=== PATIENT | male | born 1965 | race Hispanic/Latino ===

== ENCOUNTER 2018-09-30 08:20 | Inpatient (IN) | payer BC ==
[2018-09-30] MEDS ORDERED: NACL 0.9% 500 ML 500 ML IV SCH (09:00)
[2018-09-30] MEDS ORDERED: ECOTRIN PO ONE (09:00)
[2018-09-30 09:57] LABS: Basophils # (Auto) 0.1 K/mm3 (0.0-0.1); Basophils % (Auto) 0.8 % (0.0-1.8); Eosinophils % (Auto) 0.3 % (0.0-4.3); Hemoglobin 17.9 gm/dl (11.8-15.2); Lymphocytes # (Auto) 1.5 K/mm3 (1.2-5.4); Lymphocytes % (Auto) 16.2 % (13.4-35.0); Mean Corpuscular HGB Conc 34 % (32-34); Mean Corpuscular Volume 87 fl (84-94); Monocytes # (Auto) 0.7 K/mm3 (0.0-0.8); Monocytes % (Auto) 7.8 % (0.0-7.3); Platelet Count 180 K/mm3 (140-440); Red Blood Count 6.06 M/mm3 (3.65-5.03); Red Cell Distribution Width 15.5 % (13.2-15.2)
[2018-09-30 10:09] LABS: INR 0.95 (0.87-1.13); Partial Thromboplastin Time 29.2 Sec. (24.2-36.6)
[2018-09-30 10:20] LABS: BUN/Creatinine Ratio 11; Blood Urea Nitrogen 11 mg/dL (9-20); Hemolysis Index 17
[2018-09-30] MEDS ORDERED: SUBLIMAZE ONE (10:44)
[2018-09-30] MEDS ORDERED: VERSED ONE (10:44)
[2018-09-30] MEDS ORDERED: HEPARIN/NS 5000 UNIT/500ML(CATH LAB) 1,000 ML IR ONE (10:45)
[2018-09-30] MEDS: NITROGLYCERIN SYRINGE 3 ML ONE ×2 (11:23→11:28)
[2018-09-30] MEDS: CALAN ONE ×2 (11:24→11:28)
[2018-09-30] MEDS: HEPARIN 10,000 UNITS/10 ML ONE ×2 (11:25→11:28)
[2018-09-30] MEDS: XYLOCAINE 2% INFILTRATI ONE ×2 (11:26→11:27)
[2018-09-30] MEDS ORDERED: LASIX ONE (11:40)
[2018-09-30] MEDS ORDERED: LASIX IV SCH (13:00)
--- NOTE | 2018-09-30 13:02 | Cardiac Catherization Report ---
CARDIAC CATHETERIZATION REFERRING PHYSICIAN: Tj Bobby MD INDICATION FOR PROCEDURE: The patient is a pleasant 53-year-old gentleman with a history of severe cardiomyopathy, atrial fibrillation, both of which are new diagnoses with orthopnea, significant symptoms, started on anticoagulation and beta blockade, was noncompliant, here for left heart catheterization. Risks, benefits, and alternatives explained at length prior to obtaining informed consent. PROCEDURE IN DETAIL: The patient was brought to the catheterization lab in a postabsorptive state, prepped and draped in sterile fashion. Hieu's test in right hand was normal. A 2 mL of 2% lidocaine used to anesthetize the right wrist. A standard 6-[place] hydrophilic sheath was used to cannulate the right radial artery via modified Seldinger technique. All exchanges performed to exchange a J-tipped guidewire. JL3.5 catheter used to engage the left main. No dampening or ventricularization. Cineangiography performed in all projections. JR4 catheter used to cross the aortic valve under fluoroscopic guidance. Left ventriculography was performed in 30 [place] and [place] projections via hand injections, catheter flushed. Manual pullback performed with continuous pressure monitoring. Catheter used to engage the right coronary. No dampening or ventricularization. Cineangiography performed in multiple projections. Next, catheter removed from the body of wire, sheath removed. Manual pressure used to achieve hemostasis. I directly supervised the administration of moderate sedation from 11:23 to 11:45 a.m. DATA: Aortic pressure is 150/100, LV pressure is 150, LVP of 40-45 mmHg. The patient remained in sinus tachycardia throughout the procedure. Heart rate of 110. Left ventriculography reveals severe global left ventricular hypokinesis, estimated ejection fraction of 25%-30%, left main without significant disease, bifurcates left anterior descending and left circumflex. Left circumflex is a large vessel, no significant disease. LAD is a large vessel, courses anterior intergroove, wraps around the apex, no significant disease in the LAD or diagonal system. Right coronary is a large vessel, courses AV groove, distally bifurcates in the posterior and posterolateral branch, no significant disease. No evidence of aortic stenosis. CONCLUSIONS: 1. No angiographic evidence of significant epicardial coronary disease in this right dominant system. 2. Severe global left ventricular hypokinesis, estimated ejection fraction of 25%. 3. No evidence of aortic stenosis. 4. Markedly elevated LVEDP. These findings are consistent with a severe on decompensated nonischemic cardiomyopathy with a markedly elevated LVEDP and physiologic sinus tachycardia. At this point, we will discuss the options. We will go ahead and admit the patient. We will further diurese, optimization will start low dose beta blockade, systemic anticoagulation, standard radial care. Results of the procedure were explained at length with the patient and family. All questions and concerns were addressed. JOB# [id number] RAVI/ANNE
--- NOTE | 2018-09-30 13:20 | Consultation ---
History of Present Illness Consult date: 09/30/18 Requesting physician: TOM QUINTANA Consult reason: congestive heart failure History of present illness: The pt is a 53 YO male with a past medical history of NICMP, paroxysmal atrial fibrillation, HTN, DM, obesity, HLP, hypothyroidism, sleep apnea, gout. He is followed in our office by Dr. Brendan Bobby. He presented for scheduled elective LHC today and was found to be in acutely decompensated HF and thus admission per [facility] pitalist team was requested. LHC showed normal coronaries, EF 25%, markedly elevated LVEDP. Echo done 09/17/2018 showed EF 30-35%, severe global hypokinesis. Medications and Allergies Allergies Allergy/AdvReac Type Severity Reaction Status Date / Time Penicillins AdvReac Unknown Verified 09/30/18 08:33 Home Medications Medication Instructions Recorded Confirmed Last Taken Type Allopurinol 300 mg PO DAILY 09/30/18 09/30/18 09/29/18 History 300mg Apixaban [Eliquis] 5 mg PO BID 09/30/18 09/30/18 09/25/18 History 5mg Aspirin [Aspirin EC] 325 mg PO DAILY 09/30/18 09/30/18 09/25/18 History 325mg Carvedilol [Coreg] 6.25 mg PO BID 09/30/18 09/30/18 09/25/18 History 6.25mg Furosemide [Lasix TAB] 20 mg PO DAILY 09/30/18 09/30/18 09/29/18 History 20mg Levothyroxine [Synthroid] 125 mcg PO DAILY 09/30/18 09/30/18 09/29/18 History 125mcg Losartan/Hydrochlorothiazide 1 tab PO DAILY 09/30/18 09/30/18 09/29/18 History [Losartan-Hctz 50-12.5 mg Tab] 1 Pantoprazole Sodium 40 mg PO DAILY 09/30/18 09/30/18 09/29/18 History 40mg Active Meds: Active Medications Furosemide (Lasix) 40 mg IV Q24H GERMAN Sodium Chloride (Nacl 0.9% 500 Ml) 500 mls @ 50 mls/hr IV DIRECT GERMAN Stop: 09/30/18 18:59 Last Admin: 09/30/18 10:09 Dose: 50 mls/hr Documented by: Physical Examination Vital Signs Temp Pulse Resp BP Pulse Ox 98.3 F 108 H 16 139/105 98 09/30/18 09:24 09/30/18 09:24 09/30/18 09:24 09/30/18 09:24 09/30/18 09:24 Results 09/30/18 09:49 09/30/18 08:48 Coagulation 09/30/18 Range/Units 08:48 PT 13.2 (12.2-14.9) Sec. INR 0.95 (0.87-1.13) APTT 29.2 (24.2-36.6) Sec. CBC 09/30/18 Range/Units 09:49 WBC 9.0 (4.5-11.0) K/mm3 RBC 6.06 H (3.65-5.03) M/mm3 Hgb 17.9 H (11.8-15.2) gm/dl Hct 53.0 H (35.5-45.6) % Plt Count 180 (140-440) K/mm3 Lymph # 1.5 (1.2-5.4) K/mm3 [place] # 0.7 (0.0-0.8) K/mm3 Eos # 0.0 (0.0-0.4) K/mm3 Baso # 0.1 (0.0-0.1) K/mm3 Comprehensive Metabolic Panel 09/30/18 Range/Units 08:48 Sodium 140 (137-145) mmol/L Potassium 3.9 (3.6-5.0) mmol/L Chloride 101.6 (98-107) mmol/L Carbon Dioxide 30 (22-30) mmol/L BUN 11 (9-20) mg/dL Creatinine 1.0 (0.8-1.5) mg/dL Glucose 92 (75-100) mg/dL Calcium 9.0 (8.4-10.2) mg/dL - Imaging and Cardiology Echo: report reviewed (09/17/2018 showed EF 30-35%, severe global hypokinesis. ) Cardiac cath: report reviewed (09/30/2018: normal coronaries, EF 25%) EKG: report reviewed, image reviewed EKG interpretations - Telemetry EKG Rhythm: Atrial Fibrillation Assessment and Plan Initiate diuresis and GDMT as tolerated. The patient has been seen in conjunction with Dr. Brendan Bobby who agrees with the assessment and plan of care. - Patient Problems (1) Acute HFrEF (heart failure with reduced ejection fraction) Current Visit: Yes Status: Acute (2) NICM (nonischemic cardiomyopathy) Current Visit: Yes Status: Chronic (3) Paroxysmal atrial fibrillation Current Visit: Yes Status: Chronic (4) HTN (hypertension) Current Visit: Yes Status: Chronic (5) Hyperlipidemia Current Visit: Yes Status: Chronic (6) Diabetes Current Visit: Yes Status: Chronic (7) Sleep apnea Current Visit: Yes Status: Chronic (8) History of hypothyroidism Current Visit: Yes Status: Chronic (9) Obesity Current Visit: Yes Status: Chronic
[2018-09-30] MEDS ORDERED: NORCO 5/325 PO ONE (14:15)
[2018-09-30] MEDS ORDERED: NORCO 5/325 ONE (14:15)
--- NOTE | 2018-09-30 15:24 | XRay Report ---
AP CHEST: HISTORY: Short of breath AP view of the chest demonstrates a normal mediastinal and cardiac contour with clear lungs and normal bony and soft tissue structures. IMPRESSION: Unremarkable AP chest.
--- NOTE | 2018-09-30 15:31 | History and Physical Report ---
History of Present Illness Date of examination: 09/30/18 Date of admission: 09/30/18 11:43 Chief complaint: Increasing shortness of breath for 2 days History of present illness: 53 YO male with a past medical history of NICMP, paroxysmal atrial fibrillation, HTN, DM, obesity, HLP, hypothyroidism, sleep apnea, gout presented for scheduled elective LHC today and was found to be in acutely decompensated HF. LHC showed normal coronaries, EF 25%, markedly elevated LVEDP. Echo done 09/17/2018 showed EF 30-35%, severe global hypokinesis. Patient has orthopnea and dyspnea on minimal exertion. Has class IV NYHA symptoms. No chest pain. Past History Past Medical History: GERD (gout), heart failure, hypertension, hypothyroidism, other (gout) Past Surgical History: Other (back surgery with laser 20 years ago and also lithotripsy for multiple kidney stones) Social history: lives with family, smoking ([patient was doing smokeless tobacco(DIP) for the last 30 years. Stopped 3 years ago), full code Family history: hypertension Medications and Allergies Allergies Allergy/AdvReac Type Severity Reaction Status Date / Time Penicillins AdvReac Unknown Verified 09/30/18 08:33 Home Medications Medication Instructions Recorded Confirmed Last Taken Type Allopurinol 300 mg PO DAILY 09/30/18 09/30/18 09/29/18 History 300mg Apixaban [Eliquis] 5 mg PO BID 09/30/18 09/30/18 09/25/18 History 5mg Aspirin [Aspirin EC] 325 mg PO DAILY 09/30/18 09/30/18 09/25/18 History 325mg Carvedilol [Coreg] 6.25 mg PO BID 09/30/18 09/30/18 09/25/18 History 6.25mg Furosemide [Lasix TAB] 20 mg PO DAILY 09/30/18 09/30/18 09/29/18 History 20mg Levothyroxine [Synthroid] 125 mcg PO DAILY 09/30/18 09/30/18 09/29/18 History 125mcg Losartan/Hydrochlorothiazide 1 tab PO DAILY 09/30/18 09/30/18 09/29/18 History [Losartan-Hctz 50-12.5 mg Tab] 1 Pantoprazole Sodium 40 mg PO DAILY 09/30/18 09/30/18 09/29/18 History 40mg Active Meds: Active Medications Apixaban (Eliquis) 5 mg PO BID [facility]; Protocol Carvedilol (Coreg) 3.125 mg PO BID [facility] Furosemide (Lasix) 40 mg PO QDAY [facility] Sodium Chloride (Nacl 0.9% 500 Ml) 500 mls @ 50 mls/hr IV DIRECT [place]ER[place] Stop: 09/30/18 18:59 Last Admin: 09/30/18 10:09 Dose: 50 mls/hr Documented by: Levothyroxine Sodium (Synthroid) 125 mcg PO DAILY [place] Pantoprazole Sodium (Protonix) 40 mg PO DAILY [facility] Review of Systems All systems: negative Constitutional: no weight loss, no weight gain, no fever, no chills, no sweats, no night sweats Ears, nose, mouth and throat: no mouth pain, no dysphagia, no hoarseness, no sore throat Cardiovascular: orthopnea, shortness of breath, dyspnea on exertion, no chest pain Respiratory: shortness of breath, dyspnea on exertion, no cough, no cough with sputum, no excessive sputum, no hemoptysis Gastrointestinal: no abdominal pain, no nausea, no vomiting, no diarrhea, no constipation, no change in bowel habits, no hematemesis, no coffee ground emesis Genitourinary Male: no dysuria, no hematuria, no flank pain, no discharge, no urinary frequency, no urinary hesitancy, no nocturia, no incontinence, no erectile dysfunction, no genital pain Rectal: no pain, no incontinence, no bleeding Musculoskeletal: no neck stiffness, no neck pain, no shooting arm pain, no arm numbness/tingling, no low back pain, no shooting leg pain, no leg numbness/tingling, no redness of joints Integumentary: no rash, no pruritis, no redness, no sores, no wounds, no jaundice, no boils, no blisters Neurological: no seizures, no syncope Psychiatric: no anxiety, no memory loss, no change in sleep habits, no sleep disturbances, no insomnia, no hypersomnia Endocrine: no cold intolerance, no heat intolerance, no polyphagia, no excessive thirst, no polydipsia, no polyuria, no nocturia, no excessive sweating, no flushing, no weight change Hematologic/Lymphatic: no easy bruising, no easy bleeding Allergic/Immunologic: no urticaria, no allergic rhinitis, no wheezing Exam - Constitutional Vitals: Temp Pulse Resp BP Pulse Ox 98.5 F 114 H 11 L 146/86 96 09/30/18 12:00 09/30/18 14:00 09/30/18 14:25 09/30/18 14:00 09/30/18 14:00 General appearance: Present: mild distress, well-nourished - EENT Eyes: Present: PERRL ENT: hearing intact, clear oral mucosa - Neck Neck: Present: supple, normal ROM - Respiratory Respiratory effort: normal Respiratory: bilateral: CTA - Cardiovascular Rhythm: regular Heart Sounds: Present: S1 & S2. Absent: rub, click - Extremities Extremities: no ischemia, pulses intact, pulses symmetrical, No edema Peripheral Pulses: within normal limits - Abdominal General gastrointestinal: Present: soft, non-tender, non-distended, normal bowel sounds Male genitourinary: Present: normal - Rectal Rectal Exam: deferred - Integumentary Integumentary: Present: clear, warm, dry - Musculoskeletal Musculoskeletal: gait normal, strength equal bilaterally - Psychiatric Psychiatric: appropriate mood/affect, intact judgment & insight - Neurologic Neurologic: CNII-XII intact, moves all extremities - Allied Health Allied health notes reviewed: nursing, case management Results - Labs CBC & Chem 7: 09/30/18 09:49 09/30/18 08:48 Labs: Laboratory Last Values WBC 9.0 K/mm3 (4.5-11.0) 09/30/18 09:49 RBC 6.06 M/mm3 (3.65-5.03) H 09/30/18 09:49 Hgb 17.9 gm/dl (11.8-15.2) H 09/30/18 09:49 Hct 53.0 % (35.5-45.6) H 09/30/18 09:49 MCV 87 fl (84-94) 09/30/18 09:49 MCH 30 pg (28-32) 09/30/18 09:49 MCHC 34 % (32-34) 09/30/18 09:49 RDW 15.5 % (13.2-15.2) H 09/30/18 09:49 Plt Count 180 K/mm3 (140-440) 09/30/18 09:49 Lymph % (Auto) 16.2 % (13.4-35.0) 09/30/18 09:49 [place] % (Auto) 7.8 % (0.0-7.3) H 09/30/18 09:49 Eos % (Auto) 0.3 % (0.0-4.3) 09/30/18 09:49 Baso % (Auto) 0.8 % (0.0-1.8) 09/30/18 09:49 Lymph # 1.5 K/mm3 (1.2-5.4) 09/30/18 09:49 [place] # 0.7 K/mm3 (0.0-0.8) 09/30/18 09:49 Eos # 0.0 K/mm3 (0.0-0.4) 09/30/18 09:49 Baso # 0.1 K/mm3 (0.0-0.1) 09/30/18 09:49 Seg Neutrophils % 74.9 % (40.0-70.0) H 09/30/18 09:49 Seg Neutrophils # 6.8 K/mm3 (1.8-7.7) 09/30/18 09:49 PT 13.2 Sec. (12.2-14.9) 09/30/18 08:48 INR 0.95 (0.87-1.13) 09/30/18 08:48 APTT 29.2 Sec. (24.2-36.6) 09/30/18 08:48 Sodium 140 mmol/L (137-145) 09/30/18 08:48 Potassium 3.9 mmol/L (3.6-5.0) 09/30/18 08:48 Chloride 101.6 mmol/L (98-107) 09/30/18 08:48 Carbon Dioxide 30 mmol/L (22-30) 09/30/18 08:48 Anion Gap 12 mmol/L 09/30/18 08:48 BUN 11 mg/dL (9-20) 09/30/18 08:48 Creatinine 1.0 mg/dL (0.8-1.5) 09/30/18 08:48 Estimated GFR > 60 ml/min 09/30/18 08:48 BUN/Creatinine Ratio 11 % 09/30/18 08:48 Glucose 92 mg/dL (75-100) 09/30/18 08:48 Calcium 9.0 mg/dL (8.4-10.2) 09/30/18 08:48 NT-Pro-B Natriuret Pep 204.9 pg/mL (0-900) 09/30/18 08:48 Short CBC 09/30/18 Range/Units 09:49 WBC 9.0 (4.5-11.0) K/mm3 Hgb 17.9 H (11.8-15.2) gm/dl Hct 53.0 H (35.5-45.6) % Plt Count 180 (140-440) K/mm3 BMP 09/30/18 08:48 Sodium 140 Potassium 3.9 Chloride 101.6 Carbon Dioxide 30 BUN 11 Creatinine 1.0 Glucose 92 Calcium 9.0 - Imaging and Cardiology EKG: report reviewed (ectopic atrial tachycardia, heart rate of 112 per minute) Chest x-ray: report reviewed (increased interstitial markings bilaterally) Assessment and Plan Advance Directives: Yes (full code) VTE prophylaxis?: Chemical Plan of care discussed with patient/family: Yes - Patient Problems (1) Acute exacerbation of CHF (congestive heart failure) Current Visit: Yes Status: Acute Qualifiers: Heart failure type: diastolic Qualified Code(s): I50.33 - Acute on chronic diastolic (congestive) heart failure Plan to address problem: Echocardiogram was done]\ejection fraction was IV Lasix 40 every 12 Potassium 20 mEq every 12 Cardiology consult requested (2) Hypothyroidism (acquired) Current Visit: Yes Status: Acute Plan to address problem: Continue Synthroid at 125 g by mouth daily Check TSH (3) HTN (hypertension) Current Visit: Yes Status: Chronic Plan to address problem: Continue antihypertensives in the form of carvedilol and losartan (4) NICM (nonischemic cardiomyopathy) Current Visit: Yes Status: Chronic (5) Hyperlipidemia Current Visit: Yes Status: Chronic Qualifiers: Hyperlipidemia type: mixed hyperlipidemia Qualified Code(s): E78.2 - Mixed hyperlipidemia Plan to address problem: Continue statins (6) Gout Current Visit: Yes Status: Inactive Plan to address problem: Continue allopurinol for prevention of gout (7) Anticoagulation management encounter Current Visit: Yes Status: Chronic Plan to address problem: Continue ELIQUIS (8) GERD (gastroesophageal reflux disease) Current Visit: Yes Status: Acute Qualifiers: Esophagitis presence: without esophagitis Qualified Code(s): K21.9 - Gastro-esophageal reflux disease without esophagitis Plan to address problem: Continue Protonix 40 mg once a day (9) DVT prophylaxis Current Visit: Yes Status: Acute Plan to address problem: Continue Lovenox 30 mg subcutaneous daily. Patient already on Eliquis GI prophylaxis-patient on pantoprazole for GERD
[2018-09-30] MEDS ORDERED: APRESOLINE IV ONE (17:24)
[2018-09-30] MEDS ORDERED: SODIUM CHLORIDE FLUSH SYRINGE 10 ML IV PRN (17:53)
[2018-09-30] MEDS ORDERED: TYLENOL PO PRN (17:53)
[2018-09-30] MEDS ORDERED: ZOFRAN IV PRN (17:53)
[2018-09-30] MEDS ORDERED: NON-FORMULARY (Losartan/Hydrochlorothiazide [Losartan-Hctz 50-12.5 Mg Tab] 1 TAB) PO SCH (18:00)
[2018-09-30] MEDS ORDERED: PNEUMOVAX 23 IM ONE (19:15)
[2018-09-30] MEDS ORDERED: HCTZ PO SCH (20:00)
[2018-09-30] MEDS: COZAAR PO SCH (21:04)
[2018-09-30] MEDS: ELIQUIS PO SCH (21:05)
[2018-09-30] MEDS ORDERED: PERCOCET 5/325 PO PRN (21:15)
[2018-09-30] MEDS: ZYLOPRIM PO SCH (21:36)
[2018-09-30] MEDS: SODIUM CHLORIDE FLUSH SYRINGE 10 ML IV SCH (21:45)
[2018-09-30] MEDS ORDERED: COREG PO SCH ×2 (22:00)
[2018-10-01] MEDS ORDERED: SYNTHROID PO SCH (06:00)
[2018-10-01] MEDS ORDERED: LASIX IV SCH (06:00)
[2018-10-01 06:37] LABS: BUN/Creatinine Ratio 12; Blood Urea Nitrogen 13 mg/dL (9-20); Calcium 9.2 mg/dL (8.4-10.2); Hemolysis Index 24
[2018-10-01] MEDS ORDERED: ECOTRIN PO SCH (10:00)
[2018-10-01] MEDS ORDERED: LASIX PO SCH (10:00)
--- NOTE | 2018-10-01 10:04 | Progress Note ---
Assessment and Plan Optimize HR - increase coreg dosage. Cont diuresis. The patient has been seen in conjunction with Dr. Brendan Bobby who agrees with the assessment and plan of care. - Patient Problems (1) Acute HFrEF (heart failure with reduced ejection fraction) Current Visit: Yes Status: Acute (2) NICM (nonischemic cardiomyopathy) Current Visit: Yes Status: Chronic (3) Paroxysmal atrial fibrillation Current Visit: Yes Status: Chronic (4) HTN (hypertension) Current Visit: Yes Status: Chronic (5) Hyperlipidemia Current Visit: Yes Status: Chronic Qualifiers: Hyperlipidemia type: mixed hyperlipidemia Qualified Code(s): E78.2 - Mixed hyperlipidemia (6) Diabetes Current Visit: Yes Status: Chronic (7) Sleep apnea Current Visit: Yes Status: Chronic (8) History of hypothyroidism Current Visit: Yes Status: Chronic (9) Obesity Current Visit: Yes Status: Chronic Subjective Date of service: 10/01/18 Principal diagnosis: HF Interval history: pt sitting up in chair, states he is feeling a little better today. in SR with bouts of parox AFib RVR overnight. Objective Last Vital Signs Temp 98.2 F 10/01/18 08:48 Pulse 126 H 10/01/18 08:47 Resp 18 10/01/18 08:47 BP 112/77 10/01/18 08:47 Pulse Ox 96 10/01/18 08:47 - Physical Examination General: No Apparent Distress HEENT: Positive: PERRL, Normocephaly, Mucus Membranes Moist Cardiac: Positive: S1/S2, Tachycardia Lungs: Positive: Decreased Breath Sounds Neuro: Positive: Grossly Intact Abdomen: Negative: Tender Skin: Negative: Rash Musculoskeletal: No Pain Extremities: Present: +1 Edema (BLE) - Labs and Meds Coagulation 09/30/18 Range/Units 08:48 PT 13.2 (12.2-14.9) Sec. INR 0.95 (0.87-1.13) APTT 29.2 (24.2-36.6) Sec. Comprehensive Metabolic Panel 09/30/18 10/01/18 Range/Units 08:48 04:48 Sodium 140 138 (137-145) mmol/L Potassium 3.9 3.4 L (3.6-5.0) mmol/L Chloride 101.6 96.5 L (98-107) mmol/L Carbon Dioxide 30 28 (22-30) mmol/L BUN 11 13 (9-20) mg/dL Creatinine 1.0 1.1 (0.8-1.5) mg/dL Glucose 92 131 H (75-100) mg/dL Calcium 9.0 9.2 (8.4-10.2) mg/dL - Imaging and Cardiology EKG: report reviewed (ectopic atrial tachycardia, heart rate of 112 per minute) Echo: report reviewed (09/17/2018 showed EF 30-35%, severe global hypokinesis. ) Cardiac cath: report reviewed (09/30/2018: normal coronaries, EF 25%) - Telemetry EKG Rhythm: Sinus Rhythm
[2018-10-01] MEDS: COREG PO SCH ×2 (10:44→22:44)
[2018-10-01] MEDS: ZYLOPRIM PO SCH (10:45)
[2018-10-01] MEDS: K-DUR PO SCH (10:45)
[2018-10-01] MEDS: PROTONIX PO SCH (10:46)
[2018-10-01] MEDS: ELIQUIS PO SCH ×2 (10:46→22:44)
[2018-10-01] MEDS: COZAAR PO SCH (10:47)
[2018-10-01] MEDS: SODIUM CHLORIDE FLUSH SYRINGE 10 ML IV SCH ×2 (10:50→22:49)
--- NOTE | 2018-10-01 14:27 | Progress Note ---
Assessment and Plan Assessment and plan: 53 y.o male with a past medical history of NICMP, paroxysmal atrial fibrillation, HTN, DM, obesity, HLP, hypothyroidism, sleep apnea, gout presented for scheduled elective LHC on 09/30 and was found to be in acutely decompensated HF. LHC showed normal coronaries, EF 25%, markedly elevated LVEDP. Echo done 09/17/2018 showed EF 30-35%, severe global hypokinesis. Patient has orthopnea and dyspnea on minimal exertion. Has class IV NYHA symptoms. Acute Exacerbation CHF Lasix 40mg BID; con't K+ replacement, monitor electrolytes Cardiology consulted and recommendation appreciated Hypothyroidism TSH 5.280 checked on 09/30 Increase Synthroid to 127mcg HTN Continue to monitor BP Coreg increased to 6.25mg per cardiology Cardiology following and managing History Interval history: Pt has 3+ pitting edema. He states that his symptoms have improved some, but still has " alot of fluid". There were no acute overnight events. Hospitalist Physical - Constitutional Vitals: Temp Pulse Resp BP Pulse Ox 98.2 F 120 H 20 124/81 98 10/01/18 12:59 10/01/18 12:57 10/01/18 12:57 10/01/18 12:57 10/01/18 12:57 General appearance: Present: no acute distress, mild distress, obese - EENT Eyes: Present: PERRL, EOM intact ENT: hearing intact - Neck Neck: Present: supple, normal ROM - Respiratory Respiratory effort: normal Respiratory: bilateral: diminished (bases) - Cardiovascular Rhythm: irregularly irregular Heart Sounds: Present: S1 & S2 - Extremities Extremities: pulses intact Extremity abnormal: edema - Peripheral Assessment Lower Extremity Edema Type: Pitting Edema Degree: 3+ Capillary Refill: < 3 seconds Skin Temperature: Warm Peripheral Pulses: within normal limits - Abdominal General gastrointestinal: soft, non-tender, normal bowel sounds - Integumentary Integumentary: Present: warm, dry - Psychiatric Psychiatric: appropriate mood/affect, cooperative - Neurologic Neurologic: CNII-XII intact Results - Labs CBC & Chem 7: 09/30/18 09:49 10/01/18 04:48 Labs: Laboratory Last Values WBC 9.0 K/mm3 (4.5-11.0) 09/30/18 09:49 RBC 6.06 M/mm3 (3.65-5.03) H 09/30/18 09:49 Hgb 17.9 gm/dl (11.8-15.2) H 09/30/18 09:49 Hct 53.0 % (35.5-45.6) H 09/30/18 09:49 MCV 87 fl (84-94) 09/30/18 09:49 MCH 30 pg (28-32) 09/30/18 09:49 MCHC 34 % (32-34) 09/30/18 09:49 RDW 15.5 % (13.2-15.2) H 09/30/18 09:49 Plt Count 180 K/mm3 (140-440) 09/30/18 09:49 Lymph % (Auto) 16.2 % (13.4-35.0) 09/30/18 09:49 [place] % (Auto) 7.8 % (0.0-7.3) H 09/30/18 09:49 Eos % (Auto) 0.3 % (0.0-4.3) 09/30/18 09:49 Baso % (Auto) 0.8 % (0.0-1.8) 09/30/18 09:49 Lymph # 1.5 K/mm3 (1.2-5.4) 09/30/18 09:49 Nance # 0.7 K/mm3 (0.0-0.8) 09/30/18 09:49 Eos # 0.0 K/mm3 (0.0-0.4) 09/30/18 09:49 Baso # 0.1 K/mm3 (0.0-0.1) 09/30/18 09:49 Seg Neutrophils % 74.9 % (40.0-70.0) H 09/30/18 09:49 Seg Neutrophils # 6.8 K/mm3 (1.8-7.7) 09/30/18 09:49 PT 13.2 Sec. (12.2-14.9) 09/30/18 08:48 INR 0.95 (0.87-1.13) 09/30/18 08:48 APTT 29.2 Sec. (24.2-36.6) 09/30/18 08:48 Sodium 138 mmol/L (137-145) 10/01/18 04:48 Potassium 3.4 mmol/L (3.6-5.0) L 10/01/18 04:48 Chloride 96.5 mmol/L (98-107) L 10/01/18 04:48 Carbon Dioxide 28 mmol/L (22-30) 10/01/18 04:48 Anion Gap 17 mmol/L 10/01/18 04:48 BUN 13 mg/dL (9-20) 10/01/18 04:48 Creatinine 1.1 mg/dL (0.8-1.5) 10/01/18 04:48 Estimated GFR > 60 ml/min 10/01/18 04:48 BUN/Creatinine Ratio 12 % 10/01/18 04:48 Glucose 131 mg/dL (75-100) H 10/01/18 04:48 Calcium 9.2 mg/dL (8.4-10.2) 10/01/18 04:48 NT-Pro-B Natriuret Pep 204.9 pg/mL (0-900) 09/30/18 08:48 TSH 5.280 mlU/mL (0.270-4.200) H 09/30/18 19:42 Active Medications - Current Medications Current Medications: Generic Name Dose Route Start Last Admin Trade Name Freq PRN Reason Stop Dose Admin Acetaminophen 650 mg 09/30/18 17:53 Tylenol PO Q4H PRN Pain MILD(1-3)/Fever >100.5/MARTINEZ Allopurinol 300 mg 09/30/18 20:00 10/01/18 10:45 Zyloprim PO 300 mg DAILY GERMAN Administration Apixaban 5 mg 09/30/18 22:00 10/01/18 10:46 Eliquis PO 5 mg BID GERMAN Administration Protocol Carvedilol 6.25 mg 10/01/18 11:00 10/01/18 10:44 Coreg PO 6.25 mg BID GERMAN Administration Furosemide 40 mg 10/01/18 15:00 Lasix IV BID [facility] Levothyroxine Sodium 112 mcg 10/02/18 06:00 Synthroid PO DAILY@0600 [facility] Levothyroxine Sodium 25 mcg 10/02/18 06:00 Synthroid PO DAILY@0600 [facility] Losartan Potassium 50 mg 09/30/18 20:00 10/01/18 10:47 Cozaar PO 50 mg QDAY GERMAN Administration Ondansetron HCl 4 mg 09/30/18 17:53 Zofran IV Q8H PRN Nausea And Vomiting Oxycodone/Acetaminophen 1 tab 09/30/18 21:15 09/30/18 21:34 Percocet 5/325 PO 1 tab Q4H PRN Administration Pain, Moderate (4-6) Pantoprazole Sodium 40 mg 10/01/18 10:00 10/01/18 10:46 Protonix PO 40 mg DAILY GERMAN Administration Potassium Chloride 20 meq 10/01/18 10:00 10/01/18 10:45 K-Dur PO 20 meq QDAY GERMAN Administration Sodium Chloride 10 ml 09/30/18 22:00 10/01/18 10:50 Sodium Chloride Flush Syringe 10 Ml IV 10 ml BID GERMAN Administration Sodium Chloride 10 ml 09/30/18 17:53 Sodium Chloride Flush Syringe 10 Ml IV PRN PRN LINE FLUSH Nutrition/Malnutrition Assess - Dietary Evaluation Nutrition/Malnutrition Findings: Nutrition Notes Start: 10/01/18 10:41 Freq: Status: Active Protocol: Document 10/01/18 10:41 TW (Rec: 10/01/18 10:57 TW [id number]) Co-Sign 10/01/18 10:41 LP Nutrition Notes Need for Assessment generated from: ham stripper,MST Initial or Follow up Brief Note Current Diagnosis Diabetes,Hypertension,Heart Failure,Hyperlipidemia Other Pertinent Diagnosis Hx: NICM Current Diet Cardiac Labs/Tests K 3.4 Pertinent Medications Lasix Height 5 ft 11 in Weight 150.5 kg [place] Body Weight (kg) 78.18 BMI 46.3 Intake Prior to Admission Good Weight Status Morbidly Obese Subjective/Other Information RN screen for MST risk. Pt reports having a good appetite and eating 100% of meals. Noted breakfast tray with 100% eaten at bedside. Pt denies wt loss, allergies, chewing/ swallowing difficulty and V/D. Pt reports having episodes of mild nausea but it has not effected his appetite. Pt reports being hungry after meals and requesting extra pro on tray. No noted physical signs of wasting. Percent of energy/protein needs met: 100%/100% Burn Absent Trauma Absent GI Symptoms Nausea Food Allergy No Current % PO Good (75-100%) Minimum of two criteria No #1 Nutrition Diagnosis No nutrition diagnosis at this time Is patient on ventilator? No Is Patient Ambulatory and/or Out of Bed Yes REE-([facility]-ambulatory/OOB) [ 3070.769 NUTR.MSJOOB] Kcal/Kg value to use for calculation 17 Approximate Energy Requirements Using 2559 kcal/Kg Calculation Used for Recommendations Kcal/kg Additional Notes AdjBW: 114kg pro: 91-114g/day (0.8-1g/kg AdjBW) fluid: 1 mL/kcal or per MD Nutrition Intervention Change Diet Order: Continue Cardiac w/ double pro Revisit per MD consult or patient Sign Off request:
[2018-10-01] MEDS: LASIX IV SCH ×2 (15:41→22:44)
[2018-10-02] MEDS ORDERED: SYNTHROID 112 MCG, SYNTHROID 25 MCG PO SCH (06:00)
[2018-10-02] MEDS: SYNTHROID PO SCH ×2 (06:35)
[2018-10-02] MEDS: COZAAR PO SCH ×2 (09:38→12:34)
[2018-10-02] MEDS: K-DUR PO SCH (09:39)
[2018-10-02] MEDS: ELIQUIS PO SCH ×2 (09:39→21:46)
[2018-10-02] MEDS: PROTONIX PO SCH (09:39)
[2018-10-02] MEDS: LASIX IV SCH ×2 (09:39→21:45)
[2018-10-02] MEDS: COREG PO SCH ×2 (09:39→21:46)
[2018-10-02] MEDS: ZYLOPRIM PO SCH (09:39)
[2018-10-02] MEDS: SODIUM CHLORIDE FLUSH SYRINGE 10 ML IV SCH ×2 (09:41→21:46)
[2018-10-02] MEDS ORDERED: LOPRESSOR PO SCH (11:00)
--- NOTE | 2018-10-02 11:07 | Progress Note ---
Assessment and Plan Pt in apparent AFib/AFlutter with RVR HR 120s on telemetry. Optimize HR - initiate amiodarone. Cont coreg. Cont diuresis. The patient has been seen in conjunction with Dr. Brendan Bobby who agrees with the assessment and plan of care. - Patient Problems (1) Acute HFrEF (heart failure with reduced ejection fraction) Current Visit: Yes Status: Acute (2) NICM (nonischemic cardiomyopathy) Current Visit: Yes Status: Chronic (3) Paroxysmal atrial fibrillation Current Visit: Yes Status: Chronic (4) HTN (hypertension) Current Visit: Yes Status: Chronic (5) Hyperlipidemia Current Visit: Yes Status: Chronic Qualifiers: Hyperlipidemia type: mixed hyperlipidemia Qualified Code(s): E78.2 - Mixed hyperlipidemia (6) Diabetes Current Visit: Yes Status: Chronic (7) Sleep apnea Current Visit: Yes Status: Chronic (8) History of hypothyroidism Current Visit: Yes Status: Chronic (9) Obesity Current Visit: Yes Status: Chronic Subjective Date of service: 10/02/18 Principal diagnosis: HF Interval history: pt sitting up in chair, c/o orthopnea overnight. in apparent AFib/AFlutter with RVR HR 120s on telemetry. Objective Last Vital Signs Temp 98.3 F 10/02/18 08:13 Pulse 118 H 10/02/18 09:39 Resp 12 10/02/18 08:13 BP 104/71 10/02/18 09:39 Pulse Ox 94 10/02/18 08:13 - Physical Examination General: No Apparent Distress HEENT: Positive: PERRL, Normocephaly, Mucus Membranes Moist Neuro: Positive: Grossly Intact Abdomen: Negative: Tender Skin: Negative: Rash Musculoskeletal: No Pain Extremities: Present: +1 Edema (BLE) - Imaging and Cardiology EKG: report reviewed (ectopic atrial tachycardia, heart rate of 112 per minute) Echo: report reviewed (09/17/2018 showed EF 30-35%, severe global hypokinesis. ) Cardiac cath: report reviewed (09/30/2018: normal coronaries, EF 25%)
--- NOTE | 2018-10-02 11:54 | Progress Note ---
Assessment and Plan Assessment and plan: 53 y.o male with a past medical history of NICMP, paroxysmal atrial fibrillation, HTN, DM, obesity, HLP, hypothyroidism, sleep apnea, gout presented for scheduled elective LHC on 09/30 and was found to be in acutely decompensated HF. LHC showed normal coronaries, EF 25%, markedly elevated LVEDP. Echo done 09/17/2018 showed EF 30-35%, severe global hypokinesis. Patient has orthopnea and dyspnea on minimal exertion. Has class IV NYHA symptoms. At the time of my examination pt is sitting up in chair on RA. Pt states that he feels better and is looking forward to discharge. Acute Exacerbation CHF Lasix 40mg BID; con't K+ replacement, monitor electrolytes Cardiology following and managing Hypothyroidism TSH 5.280 checked on 09/30 T4 7.5 checked on 10/02 Free T4 1.3 checked on 10/02 Continue Synthroid to 127mcg HTN Continue to monitor BP On Coreg 6.25mg Start metoprolol 37.5mg q 8hrs Cardiology following and managing Paroxysmal AFib Not rate controlled AC on Eliquis On PO amiodarone Started on Amiodarone gtt by cardiology Disposition Plan: plans to d/c to home when medically cleared History Interval history: HR elevated 100-124 bpm. Cardiology contacted/ aware. He was placed on amiodarone gtt today. Hospitalist Physical - Constitutional Vitals: Temp Pulse Resp BP Pulse Ox 98.3 F 118 H 12 104/71 94 10/02/18 08:13 10/02/18 09:39 10/02/18 08:13 10/02/18 09:39 10/02/18 08:13 General appearance: Present: no acute distress, mild distress, obese - EENT Eyes: Present: PERRL, EOM intact ENT: hearing intact, dentition normal - Neck Neck: Present: supple, normal ROM - Respiratory Respiratory effort: normal Respiratory: bilateral: diminished (bases) - Cardiovascular Rhythm: irregularly irregular Heart Sounds: Present: S1 & S2 - Extremities Extremities: pulses intact Extremity abnormal: edema - Peripheral Assessment Bilateral Lower Extremity Edema Degree: 2+ Capillary Refill: < 3 seconds Skin Temperature: Warm Peripheral Pulses: within normal limits - Abdominal General gastrointestinal: soft, non-tender, normal bowel sounds - Integumentary Integumentary: Present: clear, warm, dry - Psychiatric Psychiatric: appropriate mood/affect, cooperative - Neurologic Neurologic: moves all extremities, gait normal Results - Labs CBC & Chem 7: 09/30/18 09:49 10/02/18 11:23 Labs: Laboratory Last Values WBC 9.0 K/mm3 (4.5-11.0) 09/30/18 09:49 RBC 6.06 M/mm3 (3.65-5.03) H 09/30/18 09:49 Hgb 17.9 gm/dl (11.8-15.2) H 09/30/18 09:49 Hct 53.0 % (35.5-45.6) H 09/30/18 09:49 MCV 87 fl (84-94) 09/30/18 09:49 MCH 30 pg (28-32) 09/30/18 09:49 MCHC 34 % (32-34) 09/30/18 09:49 RDW 15.5 % (13.2-15.2) H 09/30/18 09:49 Plt Count 180 K/mm3 (140-440) 09/30/18 09:49 Lymph % (Auto) 16.2 % (13.4-35.0) 09/30/18 09:49 [place] % (Auto) 7.8 % (0.0-7.3) H 09/30/18 09:49 Eos % (Auto) 0.3 % (0.0-4.3) 09/30/18 09:49 Baso % (Auto) 0.8 % (0.0-1.8) 09/30/18 09:49 Lymph # 1.5 K/mm3 (1.2-5.4) 09/30/18 09:49 [place] # 0.7 K/mm3 (0.0-0.8) 09/30/18 09:49 Eos # 0.0 K/mm3 (0.0-0.4) 09/30/18 09:49 Baso # 0.1 K/mm3 (0.0-0.1) 09/30/18 09:49 Seg Neutrophils % 74.9 % (40.0-70.0) H 09/30/18 09:49 Seg Neutrophils # 6.8 K/mm3 (1.8-7.7) 09/30/18 09:49 PT 13.2 Sec. (12.2-14.9) 09/30/18 08:48 INR 0.95 (0.87-1.13) 09/30/18 08:48 APTT 29.2 Sec. (24.2-36.6) 09/30/18 08:48 Sodium 138 mmol/L (137-145) 10/01/18 04:48 Potassium 3.4 mmol/L (3.6-5.0) L 10/01/18 04:48 Chloride 96.5 mmol/L (98-107) L 10/01/18 04:48 Carbon Dioxide 28 mmol/L (22-30) 10/01/18 04:48 Anion Gap 17 mmol/L 10/01/18 04:48 BUN 13 mg/dL (9-20) 10/01/18 04:48 Creatinine 1.1 mg/dL (0.8-1.5) 10/01/18 04:48 Estimated GFR > 60 ml/min 10/01/18 04:48 BUN/Creatinine Ratio 12 % 10/01/18 04:48 Glucose 131 mg/dL (75-100) H 10/01/18 04:48 Calcium 9.2 mg/dL (8.4-10.2) 10/01/18 04:48 NT-Pro-B Natriuret Pep 204.9 pg/mL (0-900) 09/30/18 08:48 TSH 5.280 mlU/mL (0.270-4.200) H 09/30/18 19:42 Active Medications - Current Medications Current Medications: Generic Name Dose Route Start Last Admin Trade Name Freq PRN Reason Stop Dose Admin Acetaminophen 650 mg 09/30/18 17:53 Tylenol PO Q4H PRN Pain MILD(1-3)/Fever >100.5/MARTINEZ Allopurinol 300 mg 09/30/18 20:00 10/02/18 09:39 Zyloprim PO 300 mg DAILY GERMAN Administration Amiodarone HCl 200 mg 10/02/18 22:00 Cordarone PO BID GERMAN Apixaban 5 mg 09/30/18 22:00 10/02/18 09:39 Eliquis PO 5 mg BID GERMAN Administration Protocol Carvedilol 6.25 mg 10/02/18 22:00 Coreg PO BID GERMAN Furosemide 40 mg 10/01/18 15:00 10/02/18 09:39 Lasix IV 40 mg BID GERMAN Administration Amiodarone HCl 150 mg/ 100 mls @ 600 mls/hr 10/02/18 12:00 Dextrose IV 10/02/18 12:09 ONCE ONE Amiodarone HCl 900 mg/ 500 mls @ 33.333 mls/hr 10/02/18 12:00 Dextrose IV DIRECT GERMAN Protocol 1 MG/MIN Levothyroxine Sodium 112 mcg 10/02/18 06:00 10/02/18 06:35 Synthroid PO 112 mcg DAILY@0600 GERMAN Administration Levothyroxine Sodium 25 mcg 10/02/18 06:00 10/02/18 06:35 Synthroid PO 25 mcg DAILY@0600 GERMAN Administration Losartan Potassium 25 mg 10/02/18 12:00 Cozaar PO QDAY GERMAN Ondansetron HCl 4 mg 09/30/18 17:53 Zofran IV Q8H PRN Nausea And Vomiting Oxycodone/Acetaminophen 1 tab 09/30/18 21:15 09/30/18 21:34 Percocet 5/325 PO 1 tab Q4H PRN Administration Pain, Moderate (4-6) Pantoprazole Sodium 40 mg 10/01/18 10:00 10/02/18 09:39 Protonix PO 40 mg DAILY GERMAN Administration Potassium Chloride 20 meq 10/01/18 10:00 10/02/18 09:39 K-Dur PO 20 meq QDAY GERMAN Administration Sodium Chloride 10 ml 09/30/18 22:00 10/02/18 09:41 Sodium Chloride Flush Syringe 10 Ml IV 10 ml BID GERMAN Administration Sodium Chloride 10 ml 09/30/18 17:53 Sodium Chloride Flush Syringe 10 Ml IV PRN PRN LINE FLUSH Nutrition/Malnutrition Assess - Dietary Evaluation Nutrition/Malnutrition Findings: Nutrition Notes Start: 10/01/18 10:41 Freq: Status: Active Protocol: Document 10/01/18 10:41 TW (Rec: 10/01/18 10:57 TW [id number]) Co-Sign 10/01/18 10:41 LP Nutrition Notes Need for Assessment generated from: review coordinator,MST Initial or Follow up Brief Note Current Diagnosis Diabetes,Hypertension,Heart Failure,Hyperlipidemia Other Pertinent Diagnosis Hx: NICM Current Diet Cardiac Labs/Tests K 3.4 Pertinent Medications Lasix Height 5 ft 11 in Weight 150.5 kg [place] Body Weight (kg) 78.18 BMI 46.3 Intake Prior to Admission Good Weight Status Morbidly Obese Subjective/Other Information RN screen for MST risk. Pt reports having a good appetite and eating 100% of meals. Noted breakfast tray with 100% eaten at bedside. Pt denies wt loss, allergies, chewing/ swallowing difficulty and V/D. Pt reports having episodes of mild nausea but it has not effected his appetite. Pt reports being hungry after meals and requesting extra pro on tray. No noted physical signs of wasting. Percent of energy/protein needs met: 100%/100% Burn Absent Trauma Absent GI Symptoms Nausea Food Allergy No Current % PO Good (75-100%) Minimum of two criteria No #1 Nutrition Diagnosis No nutrition diagnosis at this time Is patient on ventilator? No Is Patient Ambulatory and/or Out of Bed Yes REE-([facility]-ambulatory/OOB) [ 3070.769 NUTR.MSJOOB] Kcal/Kg value to use for calculation 17 Approximate Energy Requirements Using 2559 kcal/Kg Calculation Used for Recommendations Kcal/kg Additional Notes AdjBW: 114kg pro: 91-114g/day (0.8-1g/kg AdjBW) fluid: 1 mL/kcal or per MD Nutrition Intervention Change Diet Order: Continue Cardiac w/ double pro Revisit per MD consult or patient Sign Off request:
[2018-10-02] MEDS ORDERED: CORDARONE 150 MG in D5W 97 ML IV ONE (12:00)
[2018-10-02] MEDS ORDERED: CORDARONE 900 MG in D5W 482 ML IV SCH (12:00)
[2018-10-02] MEDS: CORDARONE PO SCH (21:46)
[2018-10-03] MEDS: SYNTHROID PO SCH ×2 (05:55)
--- NOTE | 2018-10-03 08:21 | Progress Note ---
<FREDRICK ARDON - Last Filed: 10/03/18 08:20> Assessment and Plan Assessment and plan: 53 y.o male with a past medical history of NICMP, paroxysmal atrial fibrillation, HTN, DM, obesity, HLP, hypothyroidism, sleep apnea, gout presented for scheduled elective LHC on 09/30 and was found to be in acutely decompensated HF. LHC showed normal coronaries, EF 25%, markedly elevated LVEDP. Echo done 09/17/2018 showed EF 30-35%, severe global hypokinesis. Patient has orthopnea and dyspnea on minimal exertion. Has class IV NYHA symptoms. At the time of my examination pt is sitting up in chair on RA. Pt states that he feels better and is looking forward to discharge. Acute Exacerbation CHF Lasix 40mg BID; con't K+ replacement, monitor electrolytes Cardiology following and managing Hypothyroidism TSH 5.280 checked on 09/30 T4 7.5 checked on 10/02 Free T4 1.3 checked on 10/02 Continue Synthroid to 127mcg HTN Continue to monitor BP On Coreg 6.25mg Start metoprolol 37.5mg q 8hrs Cardiology following and managing Paroxysmal AFib Not rate controlled AC on Eliquis On PO amiodarone Started on Amiodarone gtt by cardiology History Interval history: Remains on Amiodarone gtt. HR this am 92bpm. There were no acute overnight events. Hospitalist Physical - Constitutional Vitals: Temp Pulse Resp BP Pulse Ox 97.9 F 84 16 105/74 90 10/03/18 04:07 10/03/18 04:40 10/03/18 04:07 10/03/18 04:07 10/03/18 04:07 General appearance: Present: no acute distress, mild distress, obese Results - Labs CBC & Chem 7: 09/30/18 09:49 10/02/18 11:23 Labs: Laboratory Last Values WBC 9.0 K/mm3 (4.5-11.0) 09/30/18 09:49 RBC 6.06 M/mm3 (3.65-5.03) H 09/30/18 09:49 Hgb 17.9 gm/dl (11.8-15.2) H 09/30/18 09:49 Hct 53.0 % (35.5-45.6) H 09/30/18 09:49 MCV 87 fl (84-94) 09/30/18 09:49 MCH 30 pg (28-32) 09/30/18 09:49 MCHC 34 % (32-34) 09/30/18 09:49 RDW 15.5 % (13.2-15.2) H 09/30/18 09:49 Plt Count 180 K/mm3 (140-440) 09/30/18 09:49 Lymph % (Auto) 16.2 % (13.4-35.0) 09/30/18 09:49 [place] % (Auto) 7.8 % (0.0-7.3) H 09/30/18 09:49 Eos % (Auto) 0.3 % (0.0-4.3) 09/30/18 09:49 Baso % (Auto) 0.8 % (0.0-1.8) 09/30/18 09:49 Lymph # 1.5 K/mm3 (1.2-5.4) 09/30/18 09:49 [place] # 0.7 K/mm3 (0.0-0.8) 09/30/18 09:49 Eos # 0.0 K/mm3 (0.0-0.4) 09/30/18 09:49 Baso # 0.1 K/mm3 (0.0-0.1) 09/30/18 09:49 Seg Neutrophils % 74.9 % (40.0-70.0) H 09/30/18 09:49 Seg Neutrophils # 6.8 K/mm3 (1.8-7.7) 09/30/18 09:49 PT 13.2 Sec. (12.2-14.9) 09/30/18 08:48 INR 0.95 (0.87-1.13) 09/30/18 08:48 APTT 29.2 Sec. (24.2-36.6) 09/30/18 08:48 Sodium 139 mmol/L (137-145) 10/02/18 11:23 Potassium 3.6 mmol/L (3.6-5.0) 10/02/18 11:23 Chloride 98.1 mmol/L (98-107) 10/02/18 11:23 Carbon Dioxide 29 mmol/L (22-30) 10/02/18 11:23 Anion Gap 16 mmol/L 10/02/18 11:23 BUN 22 mg/dL (9-20) H 10/02/18 11:23 Creatinine 1.4 mg/dL (0.8-1.5) 10/02/18 11:23 Estimated GFR 53 ml/min 10/02/18 11:23 BUN/Creatinine Ratio 16 % 10/02/18 11:23 Glucose 111 mg/dL (75-100) H 10/02/18 11:23 Calcium 9.0 mg/dL (8.4-10.2) 10/02/18 11:23 NT-Pro-B Natriuret Pep 204.9 pg/mL (0-900) 09/30/18 08:48 TSH 5.280 mlU/mL (0.270-4.200) H 09/30/18 19:42 Free T4 1.30 ng/dL (0.76-1.46) 10/02/18 11:23 Thyroxine (T4) 7.5 ug/dL (4.0-12.0) 10/02/18 11:23 Active Medications - Current Medications Current Medications: Generic Name Dose Route Start Last Admin Trade Name Freq PRN Reason Stop Dose Admin Acetaminophen 650 mg 09/30/18 17:53 Tylenol PO Q4H PRN Pain MILD(1-3)/Fever >100.5/MARTINEZ Allopurinol 300 mg 09/30/18 20:00 10/02/18 09:39 Zyloprim PO 300 mg DAILY GERMAN Administration Amiodarone HCl 200 mg 10/02/18 22:00 10/02/18 21:46 Cordarone PO 200 mg BID GERMAN Administration Apixaban 5 mg 09/30/18 22:00 10/02/18 21:46 Eliquis PO 5 mg BID GERMAN Administration Protocol Carvedilol 6.25 mg 10/02/18 22:00 10/02/18 21:46 Coreg PO 6.25 mg BID GERMAN Administration Furosemide 40 mg 10/01/18 15:00 10/02/18 21:45 Lasix IV 40 mg BID GERMAN Administration Amiodarone HCl 900 mg/ 500 mls @ 33.333 mls/hr 10/02/18 12:00 Dextrose IV DIRECT GERMAN Protocol 1 MG/MIN Levothyroxine Sodium 112 mcg 10/02/18 06:00 10/03/18 05:55 Synthroid PO 112 mcg DAILY@0600 GERMAN Administration Levothyroxine Sodium 25 mcg 10/02/18 06:00 10/03/18 05:55 Synthroid PO 25 mcg DAILY@0600 GERMAN Administration Losartan Potassium 25 mg 10/02/18 12:00 10/02/18 12:34 Cozaar PO Not Given QDAY GERMAN Ondansetron HCl 4 mg 09/30/18 17:53 Zofran IV Q8H PRN Nausea And Vomiting Oxycodone/Acetaminophen 1 tab 09/30/18 21:15 09/30/18 21:34 Percocet 5/325 PO 1 tab Q4H PRN Administration Pain, Moderate (4-6) Pantoprazole Sodium 40 mg 10/01/18 10:00 10/02/18 09:39 Protonix PO 40 mg DAILY GERMAN Administration Potassium Chloride 20 meq 10/01/18 10:00 10/02/18 09:39 K-Dur PO 20 meq QDAY GERMAN Administration Sodium Chloride 10 ml 09/30/18 22:00 10/02/18 21:46 Sodium Chloride Flush Syringe 10 Ml IV 10 ml BID GERMAN Administration Sodium Chloride 10 ml 09/30/18 17:53 Sodium Chloride Flush Syringe 10 Ml IV PRN PRN LINE FLUSH Nutrition/Malnutrition Assess - Dietary Evaluation Nutrition/Malnutrition Findings: Nutrition Notes Start: 10/01/18 10:41 Freq: Status: Active Protocol: Document 10/01/18 10:41 TW (Rec: 10/01/18 10:57 TW [id number]) Co-Sign 10/01/18 10:41 LP Nutrition Notes Need for Assessment generated from: vehicle care specialist,MST Initial or Follow up Brief Note Current Diagnosis Diabetes,Hypertension,Heart Failure,Hyperlipidemia Other Pertinent Diagnosis Hx: NICM Current Diet Cardiac Labs/Tests K 3.4 Pertinent Medications Lasix Height 5 ft 11 in Weight 150.5 kg [place] Body Weight (kg) 78.18 BMI 46.3 Intake Prior to Admission Good Weight Status Morbidly Obese Subjective/Other Information RN screen for MST risk. Pt reports having a good appetite and eating 100% of meals. Noted breakfast tray with 100% eaten at bedside. Pt denies wt loss, allergies, chewing/ swallowing difficulty and V/D. Pt reports having episodes of mild nausea but it has not effected his appetite. Pt reports being hungry after meals and requesting extra pro on tray. No noted physical signs of wasting. Percent of energy/protein needs met: 100%/100% Burn Absent Trauma Absent GI Symptoms Nausea Food Allergy No Current % PO Good (75-100%) Minimum of two criteria No #1 Nutrition Diagnosis No nutrition diagnosis at this time Is patient on ventilator? No Is Patient Ambulatory and/or Out of Bed Yes REE-([facility]-St. Jeor-ambulatory/OOB) [ 3070.769 NUTR.MSJOOB] Kcal/Kg value to use for calculation 17 Approximate Energy Requirements Using 2559 kcal/Kg Calculation Used for Recommendations Kcal/kg Additional Notes AdjBW: 114kg pro: 91-114g/day (0.8-1g/kg AdjBW) fluid: 1 mL/kcal or per MD Nutrition Intervention Change Diet Order: Continue Cardiac w/ double pro Revisit per MD consult or patient Sign Off request: <KAISER TAPIA M - Last Filed: 10/19/18 18:59> Assessment and Plan Assessment and plan: I saw and evaluated the patient. I agree with the findings and the plan of care as documented in the Nurse Practitioner's~note, with the following corrections and additions. Plan Continue rate control medications for cardiology, continue diuresis, continue anticoagulation with eliquis Diagnosis acute systolic heart failure Paroxysmal atrial fibrillation with rvr Hypercoagulable state Hypertension hyperlipidemia diabetes obstructive sleep apnea History Interval history: no cp, no sob, no fever, no cough or vomiting Hospitalist Physical - Physical exam Narrative exam: General.: Appears well, no distress, nontoxic HEENT: Moist mucous membranes, extraocular muscles intact, no lymphadenopathy Neck: supple Cardiac: S1-S2 heard Lungs: clear to auscultation bilaterally Abdomen: soft , nontender, nondistended, bowel sounds positive Extremities: no edema clubbing or cyanosis Skin: no rash or lesions Neurologic: no gross focal deficits Psych: calm, and cooperative - Constitutional Vitals: Temp Pulse Resp BP Pulse Ox 97.9 F 84 16 125/76 90 10/03/18 04:07 10/03/18 04:40 10/03/18 04:07 10/03/18 10:19 10/03/18 04:07 Results - Labs CBC & Chem 7: 09/30/18 09:49 10/02/18 11:23 Labs: Laboratory Last Values WBC 9.0 K/mm3 (4.5-11.0) 09/30/18 09:49 RBC 6.06 M/mm3 (3.65-5.03) H 09/30/18 09:49 Hgb 17.9 gm/dl (11.8-15.2) H 09/30/18 09:49 Hct 53.0 % (35.5-45.6) H 09/30/18 09:49 MCV 87 fl (84-94) 09/30/18 09:49 MCH 30 pg (28-32) 09/30/18 09:49 MCHC 34 % (32-34) 09/30/18 09:49 RDW 15.5 % (13.2-15.2) H 09/30/18 09:49 Plt Count 180 K/mm3 (140-440) 09/30/18 09:49 Lymph % (Auto) 16.2 % (13.4-35.0) 09/30/18 09:49 [place] % (Auto) 7.8 % (0.0-7.3) H 09/30/18 09:49 Eos % (Auto) 0.3 % (0.0-4.3) 09/30/18 09:49 Baso % (Auto) 0.8 % (0.0-1.8) 09/30/18 09:49 Lymph # 1.5 K/mm3 (1.2-5.4) 09/30/18 09:49 [place] # 0.7 K/mm3 (0.0-0.8) 09/30/18 09:49 Eos # 0.0 K/mm3 (0.0-0.4) 09/30/18 09:49 Baso # 0.1 K/mm3 (0.0-0.1) 09/30/18 09:49 Seg Neutrophils % 74.9 % (40.0-70.0) H 09/30/18 09:49 Seg Neutrophils # 6.8 K/mm3 (1.8-7.7) 09/30/18 09:49 PT 13.2 Sec. (12.2-14.9) 09/30/18 08:48 INR 0.95 (0.87-1.13) 09/30/18 08:48 APTT 29.2 Sec. (24.2-36.6) 09/30/18 08:48 Sodium 139 mmol/L (137-145) 10/02/18 11:23 Potassium 3.6 mmol/L (3.6-5.0) 10/02/18 11:23 Chloride 98.1 mmol/L (98-107) 10/02/18 11:23 Carbon Dioxide 29 mmol/L (22-30) 10/02/18 11:23 Anion Gap 16 mmol/L 10/02/18 11:23 BUN 22 mg/dL (9-20) H 10/02/18 11:23 Creatinine 1.4 mg/dL (0.8-1.5) 10/02/18 11:23 Estimated GFR 53 ml/min 10/02/18 11:23 BUN/Creatinine Ratio 16 % 10/02/18 11:23 Glucose 111 mg/dL (75-100) H 10/02/18 11:23 Calcium 9.0 mg/dL (8.4-10.2) 10/02/18 11:23 NT-Pro-B Natriuret Pep 204.9 pg/mL (0-900) 09/30/18 08:48 TSH 5.280 mlU/mL (0.270-4.200) H 09/30/18 19:42 Free T4 1.30 ng/dL (0.76-1.46) 10/02/18 11:23 Thyroxine (T4) 7.5 ug/dL (4.0-12.0) 10/02/18 11:23 Nutrition/Malnutrition Assess - Dietary Evaluation Nutrition/Malnutrition Findings: Nutrition Notes Start: 10/01/18 10:41 Freq: Status: Discharge Protocol: Document 10/01/18 10:41 TW (Rec: 10/01/18 10:57 TW [id number]) Co-Sign 10/01/18 10:41 LP Nutrition Notes Need for Assessment generated from: vehicle care specialist,MST Initial or Follow up Brief Note Current Diagnosis Diabetes,Hypertension,Heart Failure,Hyperlipidemia Other Pertinent Diagnosis Hx: NICM Current Diet Cardiac Labs/Tests K 3.4 Pertinent Medications Lasix Height 5 ft 11 in Weight 150.5 kg [place] Body Weight (kg) 78.18 BMI 46.3 Intake Prior to Admission Good Weight Status Morbidly Obese Subjective/Other Information RN screen for MST risk. Pt reports having a good appetite and eating 100% of meals. Noted breakfast tray with 100% eaten at bedside. Pt denies wt loss, allergies, chewing/ swallowing difficulty and V/D. Pt reports having episodes of mild nausea but it has not effected his appetite. Pt reports being hungry after meals and requesting extra pro on tray. No noted physical signs of wasting. Percent of energy/protein needs met: 100%/100% Burn Absent Trauma Absent GI Symptoms Nausea Food Allergy No Current % PO Good (75-100%) Minimum of two criteria No #1 Nutrition Diagnosis No nutrition diagnosis at this time Is patient on ventilator? No Is Patient Ambulatory and/or Out of Bed Yes REE-([facility]-ambulatory/OOB) [ 3070.769 NUTR.MSJOOB] Kcal/Kg value to use for calculation 17 Approximate Energy Requirements Using 2559 kcal/Kg Calculation Used for Recommendations Kcal/kg Additional Notes AdjBW: 114kg pro: 91-114g/day (0.8-1g/kg AdjBW) fluid: 1 mL/kcal or per MD Nutrition Intervention Change Diet Order: Continue Cardiac w/ double pro Revisit per MD consult or patient Sign Off request:
[2018-10-03] MEDS: K-DUR PO SCH (10:18)
[2018-10-03] MEDS: ZYLOPRIM PO SCH (10:18)
[2018-10-03] MEDS: PROTONIX PO SCH (10:18)
[2018-10-03 10:19] VITALS: BP 125/76
[2018-10-03] MEDS: CORDARONE PO SCH (10:19)
[2018-10-03] MEDS: ELIQUIS PO SCH (10:19)
[2018-10-03] MEDS: COZAAR PO SCH (10:19)
[2018-10-03] MEDS: COREG PO SCH (10:19)
[2018-10-03] MEDS: SODIUM CHLORIDE FLUSH SYRINGE 10 ML IV SCH (10:19)
[2018-10-03] MEDS: LASIX IV SCH (10:19)
--- NOTE | 2018-10-03 10:57 | Progress Note ---
Assessment and Plan Currently stable cardiac status. Pt converted to SR. Pt may discharge home from cardiology standpoint. At discharge, continue amio 200mg BID, coreg, losartan, potassium, eliquis. Convert IV lasix to PO 40mg daily. Follow up in our [place] office with Dr. Brendan Bobby on 10/08/2018 @ 3:15PM. The patient has been seen in conjunction with Dr. Brendan Bobby who agrees with the assessment and plan of care. - Patient Problems (1) Acute HFrEF (heart failure with reduced ejection fraction) Current Visit: Yes Status: Acute (2) NICM (nonischemic cardiomyopathy) Current Visit: Yes Status: Chronic (3) Paroxysmal atrial fibrillation Current Visit: Yes Status: Chronic (4) HTN (hypertension) Current Visit: Yes Status: Chronic (5) Hyperlipidemia Current Visit: Yes Status: Chronic Qualifiers: Hyperlipidemia type: mixed hyperlipidemia Qualified Code(s): E78.2 - Mixed hyperlipidemia (6) Diabetes Current Visit: Yes Status: Chronic (7) Sleep apnea Current Visit: Yes Status: Chronic (8) History of hypothyroidism Current Visit: Yes Status: Chronic (9) Obesity Current Visit: Yes Status: Chronic Subjective Date of service: 10/03/18 Principal diagnosis: HF Interval history: pt sitting up in chair, states he is feeing much better today. Converted to SR yesterday afternoon and maintained NSR overnight. Objective Last Vital Signs Temp 97.9 F 10/03/18 04:07 Pulse 84 10/03/18 04:40 Resp 16 10/03/18 04:07 BP 125/76 10/03/18 10:19 Pulse Ox 90 10/03/18 04:07 - Physical Examination General: No Apparent Distress HEENT: Positive: PERRL, Normocephaly, Mucus Membranes Moist Cardiac: Positive: Reg Rate and Rhythm, S1/S2 Lungs: Positive: Decreased Breath Sounds Neuro: Positive: Grossly Intact Abdomen: Negative: Tender Skin: Negative: Rash Musculoskeletal: No Pain Extremities: Present: +1 Edema (BLE) - Labs and Meds Comprehensive Metabolic Panel 10/02/18 Range/Units 11:23 Sodium 139 (137-145) mmol/L Potassium 3.6 (3.6-5.0) mmol/L Chloride 98.1 (98-107) mmol/L Carbon Dioxide 29 (22-30) mmol/L BUN 22 H (9-20) mg/dL Creatinine 1.4 (0.8-1.5) mg/dL Glucose 111 H (75-100) mg/dL Calcium 9.0 (8.4-10.2) mg/dL - Imaging and Cardiology EKG: report reviewed (ectopic atrial tachycardia, heart rate of 112 per minute) Echo: report reviewed (09/17/2018 showed EF 30-35%, severe global hypokinesis. ) Cardiac cath: report reviewed (09/30/2018: normal coronaries, EF 25%)
--- NOTE | 2018-10-03 11:22 | Discharge Summary ---
Providers - Providers Date of Admission: 09/30/18 11:43 Date of discharge: 10/03/18 Attending physician: KAISER TAPIA MD 09/30/18 13:28 Consult to Cardiac Rehabilitation [CONS] Routine Reason For Exam: Cardiac Rehab Evaluation Primary care physician: GENESIS MENEZES Hospitalization Condition: Stable Hospital course: 53 y.o male with a past medical history of NICMP, paroxysmal atrial fibrillation, HTN, DM, obesity, HLP, hypothyroidism, sleep apnea, gout presented for scheduled elective LHC on 09/30 and was found to be in acutely decompensated HF. LHC showed normal coronaries, EF 25%, markedly elevated LVEDP. Echo done 09/17/2018 showed EF 30-35%, severe global hypokinesis. Patient had orthopnea and dyspnea on minimal exertion. Has class IV NYHA symptoms. He was diuresed with IV lasix. Pt is now rate controlled on amiodarone and is in SR. His BP with optimized with antihypertensive medications. TSH, T4, and Free T4 levels were checked, and Synthroid dose was increased. Discharge planning was discussed with pt. He is in agreement and has verbalized understanding. Acute Exacerbation CHF Hypothyroidism HTN Paroxysmal AFib Disposition: TO HOME OR SELFCARE Time spent for discharge: 33 Core Measure Documentation - Palliative Care Palliative Care/ Comfort Measures: Not Applicable - Core Measures Any of the following diagnoses?: heart failure - Heart Failure Discharge Requirements CRISTINA/ARB for LVSD if EF <40%: Yes Beta su at discharge: Yes Exam - Physical Exam Narrative exam: General appearance: Present: no acute distress, mild distress, obese - EENT Eyes: Present: PERRL, EOM intact ENT: hearing intact, dentition normal - Neck Neck: Present: supple, normal ROM - Respiratory Respiratory effort: normal Respiratory: bilateral: diminished (bases) - Cardiovascular Rhythm: irregularly irregular Heart Sounds: Present: S1 & S2 - Extremities Extremities: pulses intact Extremity abnormal: edema - Peripheral Assessment Bilateral Lower Extremity Edema Degree: 1+ Capillary Refill: < 3 seconds Skin Temperature: Warm Peripheral Pulses: within normal limits - Abdominal General gastrointestinal: soft, non-tender, normal bowel sounds - Integumentary Integumentary: Present: clear, warm, dry - Psychiatric Psychiatric: appropriate mood/affect, cooperative - Neurologic Neurologic: moves all extremities, gait normal - Constitutional Vitals: Temp Pulse Resp BP Pulse Ox 97.9 F 84 16 125/76 90 10/03/18 04:07 10/03/18 04:40 10/03/18 04:07 10/03/18 10:19 10/03/18 04:07 Plan Activity: advance as tolerated Weight Bearing Status: Weight Bear as Tolerated Diet: low fat, low salt Special Instructions: record daily weights, record daily BP diary Follow up with: GENESIS MENEZES MD [Primary Care Provider] - 7 Days DESTINY GREEN MD [Staff Physician] - 7 Days (Follow up in our [place] office with Dr. Brendan Green on 10/08/2018 @ 3:15PM. ) Prescriptions: Amiodarone [Cordarone 200 MG TAB] 200 mg PO BID 30 Days tablet Carvedilol [Coreg] 6.25 mg PO BID 30 Days tablet Losartan [Cozaar] 25 mg PO QDAY 30 Days tablet Apixaban [Eliquis] 5 mg PO BID 30 Days tablet Potassium Chloride [K-Dur] 20 meq PO QDAY 30 Days #30 tablet Furosemide [Lasix TAB] 40 mg PO QDAY 30 Days tablet Levothyroxine [Synthroid] 112 mcg PO DAILY@0600 30 Days tablet Levothyroxine [Synthroid] 25 mcg PO DAILY@0600 30 Days tablet
== END 2018-10-03 13:13 | disposition home or self-care (01) | DRG 287 ==
LOC: CATHLABREC 08:20 → 4A 11:43
PROVIDERS: ADMIT Internal Medicine; ATTEND Internal Medicine
PROC: 4A023N7 Measurement of Cardiac Sampling and Pressure, Left Heart, Percutaneous Approach (ICD-10-PCS; principal; 2018-09-30)
PROC: B2111ZZ Fluoroscopy of Multiple Coronary Arteries using Low Osmolar Contrast (ICD-10-PCS; 2018-09-30)
PROC: B2151ZZ Fluoroscopy of Left Heart using Low Osmolar Contrast (ICD-10-PCS; 2018-09-30)
PROC: 5A09357 Assistance with Respiratory Ventilation, Less than 24 Consecutive Hours, Continuous Positive Airway Pressure (ICD-10-PCS; 2018-09-30)
PROC: 3E0234Z Introduction of Serum, Toxoid and Vaccine into Muscle, Percutaneous Approach (ICD-10-PCS; 2018-09-30)
DX: I11.0 Hypertensive heart disease with heart failure (principal); Z68.42 Body mass index [BMI] 45.0-49.9, adult; I50.33 Acute on chronic diastolic (congestive) heart failure; I42.0 Dilated cardiomyopathy; K21.9 Gastro-esophageal reflux disease without esophagitis; E03.9 Hypothyroidism, unspecified; M10.9 Gout, unspecified; G47.33 Obstructive sleep apnea (adult) (pediatric); D75.1 Secondary polycythemia; E66.9 Obesity, unspecified; E78.2 Mixed hyperlipidemia; I48.0 Paroxysmal atrial fibrillation; F17.290 Nicotine dependence, other tobacco product, uncomplicated; E11.9 Type 2 diabetes mellitus without complications; Z87.442 Personal history of urinary calculi; Z88.0 Allergy status to penicillin; Z79.01 Long term (current) use of anticoagulants; Z79.899 Other long term (current) drug therapy; Z79.82 Long term (current) use of aspirin; Z82.49 Family history of ischemic heart disease and other diseases of the circulatory system; Z23 Encounter for immunization; Z79.84 Long term (current) use of oral hypoglycemic drugs
CPT/HCPCS: 36415; 71045; 80048; 83880; 84436; 84439; 84443; 85025; 85610; 85730; 90732; 93005; 93010; 93458; 94660; G0378; C1894; J0282; J0360; J1644; J1940; J2250; J3010; J7040; J7060; Q9967